=== PATIENT | male | born 1990 | race African-American/Black ===

== ENCOUNTER 2019-05-01 23:42 | Emergency (ER) | payer SELFPAY ==
--- NOTE | 2019-05-02 00:18 | NUR ---
PT TAKEN TO CT VIA [facility]
--- NOTE | 2019-05-02 00:25 | NUR ---
returned from ct
--- NOTE | 2019-05-02 01:11 | NUR ---
Patient discharged to home in stable condition. Written and verbal after care instructions given. Patient verbalizes understanding of instruction.
--- NOTE | 2019-05-02 01:11 | NUR ---
PATIENT AGREES TO WAIT TO SPEAK WITH MANAGER [employer] IN THE MORNING.
== END 2019-05-02 01:13 | disposition home or self-care (01) ==
LOC: ER 23:46
DX: S09.8XXA Other specified injuries of head, initial encounter (principal); F17.200 Nicotine dependence, unspecified, uncomplicated; Z98.890 Other specified postprocedural states; Z59.0 Homelessness; X58.XXXA Exposure to other specified factors, initial encounter; Y93.89 Activity, other specified; Y92.89 Other specified places as the place of occurrence of the external cause; Y99.8 Other external cause status
CPT/HCPCS: 70450-TC